=== PATIENT | female | born 1940 | race Caucasian/White ===

== ENCOUNTER → 2020-11-02 | Outpatient (CLI) | payer MEDICARE ==
[2015-07-07 11:26] VITALS: BP 121/69
[~2020-11-02] MED LIST: ACET500T68 PO; ASPI-630 PO; CHOL200074 PO; DILT180C2 PO; DOCU50CA9 PO; FISH1CAP PO; GARL10002 PO; HYDR12.58 PO; IBUP-1027 PO; IOHEXOL 180 MG/ML 10 ML VIAL. IT ONE; LEVO100C PO; LIDOCAINE 1% Multi-Dose 20 ML VIAL. ID ONE; LOSA100T14 PO; PARO20TA3 PO; PARO30TA3 PO; PRAV80TA2 PO; SPIR1TAB PO
--- NOTE | 2020-11-02 16:30 | KCIC ---
Lumbar myelogram 11/02/2020 Clinical History: Low back pain which radiates down both hips. Technique: After the risks and benefits of the procedure were explained to the patient, written infor med consent was obtained. The patient was placed prone on the fluoroscopy table and the lower back wa s prepped and draped in sterile fashion. 1% lidocaine was used as a local anesthetic. Under fluorosco pic guidance, the thecal sac of the lumbar cistern was punctured at the L2-L3 level using 25-gauge Wh itacre needle. After confirming clear CSF return, 15 cc of Omnipaque 180 were injected through the ne edle into the thecal sac of the lumbar cistern under fluoroscopic guidance. Following this the needle was removed and hemostasis achieved at the puncture site. A sterile bandage was placed on the skin p uncture site. AP, bilateral oblique, lateral and standing neutral, flexion and extension lateral digi davin radiographs of the lumbar spine were obtained. Following this the patient was taken to CT where a CT scan of the lumbar spine was performed. This will be reported separately. Following the examinat ions the patient was sent home with an instruction sheet. The patient tolerated the procedure well an d there were no immediate complications. The total fluoroscopic time for this procedure was 78 second s. 9 digital spot radiographs were obtained. Findings: Very mild S-shaped curvature of the thoracolumbar spine is seen. Mild anterolisthesis of L3 in relation to L4 and L4 in relation to L5 is noted. Degenerative changes consisting of disc space n arrowing, vertebral endplate sclerosis and mild to mild anterior and posterior vertebral body osteoph yte formation are seen involving the L3-4, L4-5 and L5-S1 disc spaces. Degenerative changes are seen involving the facet joints throughout the mid and lower lumbar spine. Moderate anterior and posterior extradural defects are seen upon the contrast column at L3-4. A moderate anterior extradural defect is seen upon the contrast column at L4-5. There is no evidence of complete block of contrast at any l evel involving the lumbar vertebrae. The alignment of the lumbar vertebrae is maintained on the flexi on and extension radiographs. Atherosclerotic calcification of the abdominal aorta is seen. Impression: Degenerative changes are seen throughout the lumbar spine which result in moderate anteri or and posterior extradural defects upon the contrast column at L3-4 and a mild anterior extradural d efect upon the contrast column at L4-5. There is no evidence of complete block of contrast at any lev el. Electronically signed by: Duy Hall MD (11/02/2020 4:27 PM) [id number]
--- NOTE | 2020-11-02 17:12 | KCIC ---
CT lumbar myelogram 11/02/2020 Clinical History: Low back pain which radiates down both hips. Technique: This study was performed after a lumbar myelogram, contiguous, 0.6 mm axial sections were obtained through the lumbar spine. 3 mm sagittal, coronal and axial reconstructed images were obtaine d. Findings: Comparison is made to the patient's previous CT lumbar myelogram dated 07/07/2015. Additional comparison is made to the patient's lumbar myelogram performed earlier today. The patient has 6 lumbar-appearing vertebrae consistent with transitional anatomy. For the purposes o f this dictation the transitional vertebral segment will be referred to by the letter T. It is partia lly sacralized. The sagittal and coronal reconstructed images demonstrate very mild S-shaped curvature of the thoraco lumbar spine. Mild anterolisthesis of L4 in relation to L5 and L5 in relation to T is seen. Degenerat johan changes consisting of disc space narrowing, vertebral endplate sclerosis, vacuum disc phenomenon and mild anterior and posterior vertebral body osteophyte formation are seen involving the L4-5 and L 5 2 the disc spaces. Atherosclerotic calcification of the abdominal aorta and its branches is noted. At the L1-2, L2-3 and L3-4 disc spaces there are minimal to mild generalized disc bulges. Degenerativ e changes are seen involving the facet joints bilaterally. There is mild ligamentum flavum hypertroph y bilaterally. These findings do not result in significant central spinal canal or neural foraminal s tenosis. At the L4-5 disc space there is a moderate generalized disc bulge. Degenerative changes are seen invo lving the facet joints bilaterally. There is moderate ligamentum flavum hypertrophy bilaterally. Thes e findings when combined result in moderate central spinal canal stenosis. Mild bilateral neural fora gerard stenosis is seen. At the L5-T disc space there is a moderate generalized disc bulge. Degenerative changes are seen invo lving the facet joints bilaterally. There is mild ligamentum flavum hypertrophy bilaterally. These fi ndings when combined result in moderate central spinal canal stenosis. Mild bilateral neural foramina l stenosis is seen. At the T-S1 disc space degenerative changes are seen involving the facet joints bilaterally. These fi ndings do not result in significant central spinal canal or neural foraminal stenosis. The degenerative changes have progressed slightly since the previous examination. IMPRESSION: 1. The patient has transitional vertebral anatomy as discussed above. 2. The changes of degenerative disc disease are seen throughout the lumbar spine. These findings resu lt in moderate central spinal canal stenosis with mild bilateral neural foraminal stenosis at L4-5 an d L5-T. Electronically signed by: Duy Hall MD (11/02/2020 5:10 PM) [id number]
== END | disposition home or self-care (01) ==
LOC: KCIC 12:27
PROVIDERS: ATTEND Physician Assistant
DX: M54.5 Low back pain (principal); M47.817 Spondylosis without myelopathy or radiculopathy, lumbosacral region; I70.0 Atherosclerosis of aorta; M51.36 Other intervertebral disc degeneration, lumbar region; I10 Essential (primary) hypertension; E78.00 Pure hypercholesterolemia, unspecified; E66.9 Obesity, unspecified; M19.90 Unspecified osteoarthritis, unspecified site; E03.9 Hypothyroidism, unspecified; F41.9 Anxiety disorder, unspecified; F32.9 Major depressive disorder, single episode, unspecified; Z85.828 Personal history of other malignant neoplasm of skin; Z79.899 Other long term (current) drug therapy; Z98.890 Other specified postprocedural states; Z79.82 Long term (current) use of aspirin; Z88.6 Allergy status to analgesic agent; Z88.8 Allergy status to other drugs, medicaments and biological substances
CPT/HCPCS: 62304; 72132; J3490; Q9965